=== PATIENT | female | born 1955 | race Caucasian/White ===

== ENCOUNTER 2018-10-14 19:57 | Emergency (ER) | payer BC ==
[2018-10-14 20:43] VITALS: BP 134/70
--- NOTE | 2018-10-14 21:00 | EDM.PDOC ---
ED HPI GENERAL MEDICAL PROBLEM - General Chief Complaint: Head Injury Stated Complaint: FELL AND HIT HEAD, R ANKLE AND L KNEE Time Seen by Provider: 10/14/18 20:37 Source of Information: Reports: Patient History Limitations: Reports: No Limitations - History of Present Illness INITIAL COMMENTS - FREE TEXT/NARRATIVE: HISTORY AND PHYSICAL: History of present illness: Patient is a 63-year-old female who presents to the emergency room with complaints of right foot/ankle pain and left knee pain post fall. She [place] she missed a step and her right ankle rolled. She attempted to break her fall by placing her left knee outward and both outstretched hands. She did hit the back of her head but did not lose consciousness. She had difficulty bearing weight on the right foot and wanted to come and be evaluated. She denies any blood thinners or aspirin use. Review of systems: As per history of present illness and below otherwise all systems reviewed and negative. Past medical history: As per history of present illness and as reviewed below otherwise noncontributory. Surgical history: As per history of present illness and as reviewed below otherwise noncontributory. Social history: See social history for further information Family history: As per history of present illness and as reviewed below otherwise noncontributory. Physical exam: General: Well-developed and well-nourished 63-year-old female. Alert and oriented. Nontoxic appearing and in no acute distress. HEENT: Small localized area to the posterior scalp which is tender, goose egg noted with mild erythema. Otherwise head/scalp is normocephalic, pupils equal and reactive bilaterally (normal variance of left pupil), negative for conjunctival pallor or scleral icterus, mucous membranes moist, TMs normal bilaterally, throat clear, neck supple, nontender, trachea midline. No drooling or trismus noted. No meningeal signs. No hot potato voice noted. Lungs: Clear to auscultation, breath sounds equal bilaterally, chest nontender. Heart: S1S2, regular rate and rhythm without overt murmur Abdomen: Soft, nondistended, nontender. Negative for masses or hepatosplenomegaly. Negative for costovertebral tenderness. Pelvis: Stable nontender. Genitourinary: Deferred. Rectal: Deferred. Skin: Intact, warm, dry. No lesions or rashes noted. Extremities: Moves all extremities per self without any difficulty or deficits. Neurovascular unremarkable. C-spine/Back: No pinpoint vertebral tenderness upon palpation. No crepitus, step -offs or obvious deformities. Patient was ambulatory into the emergency room and his, tingling or satellite paresthesia. Denies any urinary or fecal incontinence. Neuro: Awake, alert, oriented. Cranial nerves II through XII unremarkable. Cerebellum unremarkable. Motor and sensory unremarkable throughout. Exam nonfocal. Notes: We did discuss performing a head CT, she declines. She denies any loss of consciousness and states she is asymptomatic. She states that she did previously have a subdural hematoma which resulted in a ptosis of the left eye. She is aware of risks of not having this test performed. Continues to decline. She is hesitant about receiving x-ray of the ankle and knee, although these areas are tender with palpation and the reason she is being evaluated today. She ultimately is agreeable to having the imaging done of these. She refuses any pain medication at this time. Stating that she only takes Tylenol or "natural muscle relaxers". Patient did come in using her own crutches from previous surgeries. X-rays were negative. Provided with a CAM walker boot. Supportive care measures were reviewed and discussed. Voices understanding and is agreeable to plan of care. Denies any further questions or concerns at this time. Diagnostics: Right ankle/foot x-ray, left knee injury Therapeutics: CAM walker boot Prescription: Declined Impression: Head injury Left knee injury Right foot injury Plan: 1. Rest, ice, elevate the painful extremities as able. Use the walking boot and crutches as needed for comfort. 2. Tylenol and/or ibuprofen as needed for pain management. 3. Please follow-up with the orthopedic provider as we discussed. Return to the ED as needed and as discussed. Definitive disposition and diagnosis as appropriate pending reevaluation and review of above. head;left knee;right ankle Pain Score (Numeric/FACES): 9 - Related Data Allergies Allergy/AdvReac Type Severity Reaction Status Date / Time codeine Allergy Mild Blurred Verified 10/14/18 20:43 Vision diphenhydramine HCl Allergy Mild Tachycardia Verified 10/14/18 20:43 [From Benadryl] latex Allergy Mild Hives Verified 10/14/18 20:43 meperidine HCl [From Demerol] Allergy Mild Hives Verified 10/14/18 20:43 Penicillins Allergy Mild Hives Verified 10/14/18 20:43 promethazine HCl Allergy Mild Hives Verified 10/14/18 20:43 [From Phenergan] rofecoxib [From Vioxx] Allergy Mild Hives Verified 10/14/18 20:43 Sulfa (Sulfonamide Allergy Mild Hives Verified 10/14/18 20:43 Antibiotics) Home Meds: Home Meds Levalbuterol Tartrate [Xopenex Hfa] 1 puff INH ASDIRECTED PRN 10/14/18 [History] Past Medical History HEENT History: Reports: Other (See Below) Other 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 Respiratory History: Reports: Asthma Gastrointestinal History: Reports: Hiatal Hernia 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: high risk , early menopause, primary infertility Musculoskeletal History: Reports: Fracture Other Musculoskeletal History: knee dislocations, Neurological History: Reports: Migraines, Vertigo, Other (See Below) Other Neuro History: subdural hematoma Psychiatric History: Reports: Anxiety Endocrine/Metabolic History: Reports: Other (See Below) Other Endocrine/Metabolic History: states primary adrenal insuffiency Hematologic History: Reports: Blood Transfusion(s) - Past Surgical History Female Surgical History: Reports: Section Musculoskeletal Surgical History: Reports: Ganglion Cyst, Hip Replacement, Knee Replacement Social & Family History - Family History Family Medical History: Noncontributory Cardiac: Reports: [place] Respiratory: Reports: Asthma - Tobacco Use Smoking Status *Q: Never Smoker - Caffeine Use Caffeine Use: Reports: Coffee - Recreational Drug Use Recreational Drug Use: No - Living Situation & Occupation Living situation: Reports: ED ROS GENERAL - Review of Systems Review Of Systems: ROS reveals no pertinent complaints other than HPI. ED EXAM, HEAD INJURY - Physical Exam Exam: See Below (See dictation) Course - Vital Signs Last Recorded V/S: Last Vital Signs Temp 98.7 F 10/14/18 20:30 Pulse 80 10/14/18 20:30 Resp 18 10/14/18 20:30 BP 134/70 10/14/18 20:30 Pulse Ox 96 10/14/18 20:30 - Orders/Labs/Meds Orders: Active Orders 24 hr Category Date Time Status DME for Discharge [COMM] Stat Oth 10/14/18 21:01 Ordered Departure - Departure Time of Disposition: 22:30 Disposition: Home, Self-Care 01 Clinical Impression: Head injury Qualifiers: Encounter type: initial encounter Qualified Code(s): S09.90XA - Unspecified injury of head, initial encounter Left knee injury Qualifiers: Encounter type: initial encounter Qualified Code(s): S89.92XA - Unspecified injury of left lower leg, initial encounter Right ankle injury Qualifiers: Encounter type: initial encounter Qualified Code(s): S99.911A - Unspecified injury of right ankle, initial encounter - Discharge Information Instructions: RICE for Routine Care of Injuries, [id number], Head Injury, Adult, [id number] Referrals: PCP,None [Primary Care Provider] - Forms: ED Department Discharge Additional Instructions: The following information is given to patients seen in the emergency department who are being discharged to home. This information is to outline your options for follow-up care. We provide all patients seen in our emergency department with a follow-up referral. The need for follow-up, as well as the timing and circumstances, are variable depending upon the specifics of your emergency department visit. If you don't have a primary care physician on staff, we will provide you with a referral. We always advise you to contact your personal physician following an emergency department visit to inform them of the circumstance of the visit and for follow-up with them and/or the need for any referrals to a consulting specialist. The emergency department will also refer you to a specialist when appropriate. This referral assures that you have the opportunity for follow-up care with a specialist. All of these measure are taken in an effort to provide you with optimal care, which includes your follow-up. Under all circumstances we always encourage you to contact your private physician who remains a resource for coordinating your care. When calling for follow-up care, please make the office aware that this follow-up is from your recent emergency room visit. If for any reason you are refused follow-up, please contact the [facility] Emergency Department at and asked to speak to the emergency department charge nurse. [facility] [address] [place] [id number] [facility] [address] [place] [address] [facility] - Orth[facility] Clinic Professional Building [address] [facility], [address] [place] [address] 1. Rest, ice, elevate the painful extremities as able. Use the walking boot and crutches as needed for comfort. 2. Tylenol and/or ibuprofen as needed for pain management. 3. Please follow-up with the orthopedic provider as we discussed. Return to the ED as needed and as discussed. - My Orders Last 24 Hours: My Active Orders 10/14/18 21:01 DME for Discharge [COMM] Stat - Assessment/Plan Last 24 Hours: My Active Orders 10/14/18 21:01 DME for Discharge [COMM] Stat
--- NOTE | 2018-10-14 22:11 | CR ---
Indication: Pain Technique: Three views right ankle Comparison: None Findings: Bones: Alignment is normal. No fractures or bone lesions. Joint spaces: Unremarkable. Soft tissues: Unremarkable. Impression: Negative. Dictated by Jolly Goldberg MD @ Oct 14 2018 10:10PM Signed by Dr. Jolly Goldberg @ Oct 14 2018 10:10PM
--- NOTE | 2018-10-14 22:11 | CR ---
Indication: Pain Technique: Two views right foot Comparison: None Findings: Bones: Alignment is normal. No fractures or bone lesions. Small inferior and posterior calcaneal enthesophytes. Joint spaces: Unremarkable. Soft tissues: Unremarkable. Impression: No acute osseous abnormality. Dictated by Jolly Goldberg MD @ Oct 14 2018 10:08PM Signed by Dr. Jolly Goldberg @ Oct 14 2018 10:08PM
--- NOTE | 2018-10-14 22:13 | CR ---
Indication: Pain Technique: Three views left knee Comparison: None Findings: Bones: alignment is normal. No fractures or bone lesions. Joint spaces: Status post left knee arthroplasty. No hardware complication identified. Soft tissues: Unremarkable. Impression: No acute abnormality. Status post left knee arthroplasty. Dictated by Jolly Goldberg MD @ Oct 14 2018 10:11PM Signed by Dr. Jolly Goldberg @ Oct 14 2018 10:11PM
== END 2018-10-14 23:15 | disposition home or self-care (01) ==
LOC: MW.ED 19:57
DX: S09.90XA Unspecified injury of head, initial encounter (principal); S89.92XA Unspecified injury of left lower leg, initial encounter; S99.911A Unspecified injury of right ankle, initial encounter; Z88.0 Allergy status to penicillin; Z88.2 Allergy status to sulfonamides; Z91.040 Latex allergy status; Z88.5 Allergy status to narcotic agent; Z88.8 Allergy status to other drugs, medicaments and biological substances; W10.9XXA Fall (on) (from) unspecified stairs and steps, initial encounter
CPT/HCPCS: 73562-26-LT; 73562-LT; 73610-26-RT; 73610-RT; 73620-26-RT; 73620-RT; 99283-25

== ENCOUNTER 2019-09-30 13:28 | Emergency (ER) | payer BC ==
[2019-09-30 14:01] VITALS: BP 133/77; PULSE 92
--- NOTE | 2019-09-30 15:38 | EDM.PDOC ---
ED HPI GENERAL MEDICAL PROBLEM - General Chief Complaint: ENT Problem Stated Complaint: OBJECT IN THROAT Time Seen by Provider: 09/30/19 15:11 Source of Information: Reports: Patient History Limitations: Reports: No Limitations - History of Present Illness INITIAL COMMENTS - FREE TEXT/NARRATIVE: HISTORY AND PHYSICAL: History of present illness: Patient is a 64-year-old female who presents to the ED today with concern of "scratching her throat ". Patient states she was eating a piece of celery and felt like for second to got stuck but states that it did go down. Patient states since then she has had pain with swallowing. Patient states she has been able to eat both solids and liquids since this incident but does have pain with doing so. Patient states she does not think anything is stuck but felt like her throat got scratched. Patient denies any difficulties breathing or any other symptoms or concerns. Patient denies fever, chills, chest pain, shortness of breath, or cough. Denies headache, neck stiff ness, change in vision, syncope, or near syncope. Denies nausea, vomiting, abdominal pain, diarrhea, constipation, or dysuria. Has not noted any blood in urine or stool. Patient has been eating and drinking appropriately. Review of systems: As per history of present illness and below otherwise all systems reviewed and negative. Past medical history: As per history of present illness and as reviewed below otherwise noncontributory. Surgical history: As per history of present illness and as reviewed below otherwise noncontributory. Social history: See social history for further information Family history: As per history of present illness and as reviewed below otherwise noncontributory. Physical exam: General: Patient is alert, oriented, and in no acute distress. Patient sitting comfortably on exam table. HEENT: Atraumatic, normocephalic, pupils equal and reactive bilaterally, negative for conjunctival pallor or scleral icterus, mucous membranes moist, TMs normal bilaterally, throat clear, neck supple, nontender, trachea midline. No drooling or trismus noted. No meningeal signs. No hot potato voice noted. Lungs: Clear to auscultation, breath sounds equal bilaterally, chest nontender. Heart: S1S2, regular rate and rhythm without overt murmur Abdomen: Soft, nondistended, nontender. Negative for masses or hepatosplenomegaly. Negative for costovertebral tenderness. Pelvis: Stable nontender. Genitourinary: Deferred. Rectal: Deferred. Skin: Intact, warm, dry. No lesions or rashes noted. Extremities: Atraumatic, negative for cords or calf pain. Neurovascular unremarkable. Neuro: Awake, alert, oriented. Cranial nerves II through XII unremarkable. Cerebellum unremarkable. Motor and sensory unremarkable throughout. Exam nonfocal. Notes: Patient declines all diagnostics and therapeutics today in the ED. Had thorough discussion with patient about risk versus benefits of this and expresses understanding. Discussed importance for follow-up with a primary care provider. Voices understanding and is agreeable to plan of care. Denies any further questions or concerns at this time. Diagnostics: Declined Therapeutics: Declined Prescription: None Impression: Dysphagia Plan: 1. You can alternate ibuprofen and Tylenol as directed for pain and discomfort. 2. Follow-up with a primary care provider as discussed. Return to the ED as needed and as discussed. Definitive disposition and diagnosis as appropriate pending reevaluation and review of above. - Related Data Allergies Allergy/AdvReac Type Severity Reaction Status Date / Time codeine Allergy Mild Blurred Verified 09/30/19 14:01 Vision diphenhydramine HCl Allergy Mild Tachycardia Verified 09/30/19 14:01 [From Benadryl] latex Allergy Mild Hives Verified 09/30/19 14:01 meperidine HCl [From Demerol] Allergy Mild Hives Verified 09/30/19 14:01 Penicillins Allergy Mild Hives Verified 09/30/19 14:01 promethazine HCl Allergy Mild Hives Verified 09/30/19 14:01 [From Phenergan] rofecoxib [From Vioxx] Allergy Mild Hives Verified 09/30/19 14:01 Sulfa (Sulfonamide Allergy Mild Hives Verified 09/30/19 14:01 Antibiotics) Home Meds: Home Meds Levalbuterol Tartrate [Xopenex Hfa] 1 puff INH ASDIRECTED PRN 10/14/18 [History] Past Medical History HEENT History: Reports: Other (See Below) Other 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 Respiratory History: Reports: Asthma Gastrointestinal History: Reports: Hiatal Hernia 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: high risk , early menopause, primary infertility Musculoskeletal History: Reports: Fracture Other Musculoskeletal History: knee dislocations, Neurological History: Reports: Migraines, Vertigo, Other (See Below) Other Neuro History: subdural hematoma Psychiatric History: Reports: Anxiety Endocrine/Metabolic History: Reports: Other (See Below) Other Endocrine/Metabolic History: states primary adrenal insuffiency Hematologic History: Reports: Blood Transfusion(s) - Infectious Disease History Infectious Disease History: Reports: Chicken Pox, Measles, Mumps - Past Surgical History Female Surgical History: Reports: Section Musculoskeletal Surgical History: Reports: Ganglion Cyst, Hip Replacement, Knee Replacement Dermatological Surgical History: Reports: Other (See Below) Social & Family History - Family History Family Medical History: Noncontributory Cardiac: Reports: [place] Respiratory: Reports: Asthma - Tobacco Use Smoking Status *Q: Never Smoker - Caffeine Use Caffeine Use: Reports: Coffee - Recreational Drug Use Recreational Drug Use: No - Living Situation & Occupation Living situation: Reports: ED ROS GENERAL - Review of Systems Review Of Systems: Comprehensive ROS is negative, except as noted in HPI. ED EXAM, GENERAL - Physical Exam Exam: See Below (see dictation) Course - Vital Signs Last Recorded V/S: Last Vital Signs Temp 97.9 F 09/30/19 13:56 Pulse 92 09/30/19 13:56 Resp 18 09/30/19 13:56 BP 133/77 09/30/19 13:56 Pulse Ox 97 09/30/19 13:56 Departure - Departure Time of Disposition: 15:37 Disposition: Home, Self-Care 01 Clinical Impression: Dysphagia Qualifiers: Dysphagia type: unspecified Qualified Code(s): R13.10 - Dysphagia, unspecified - Discharge Information Referrals: John Schneider MD [Primary Care Provider] - Forms: ED Department Discharge Additional Instructions: The following information is given to patients seen in the emergency department who are being discharged to home. This information is to outline your options for follow-up care. We provide all patients seen in our emergency department with a follow-up referral. The need for follow-up, as well as the timing and circumstances, are variable depending upon the specifics of your emergency department visit. If you don't have a primary care physician on staff, we will provide you with a referral. We always advise you to contact your personal physician following an emergency department visit to inform them of the circumstance of the visit and for follow-up with them and/or the need for any referrals to a consulting specialist. The emergency department will also refer you to a specialist when appropriate. This referral assures that you have the opportunity for follow-up care with a specialist. All of these measure are taken in an effort to provide you with optimal care, which includes your follow-up. Under all circumstances we always encourage you to contact your private physician who remains a resource for coordinating your care. When calling for follow-up care, please make the office aware that this follow-up is from your recent emergency room visit. If for any reason you are refused follow-up, please contact the [facility] Emergency Department at and asked to speak to the emergency department charge nurse. [facility] [address] [place] [address] [id number] [address] [address] 1. You can alternate ibuprofen and Tylenol as directed for pain and discomfort. 2. Follow-up with a primary care provider as discussed. Return to the ED as needed and as discussed. Sepsis Event Note - Evaluation Sepsis Screening Result: No Definite Risk - Focused Exam Vital Signs: Vital Signs Temp Pulse Resp BP Pulse Ox 09/30/19 13:56 97.9 F 92 18 133/77 97 Date Exam was Performed: 09/30/19 Time Exam was Performed: 15:38
== END 2019-09-30 15:50 | disposition home or self-care (01) ==
LOC: MW.ED 13:28
DX: R13.10 Dysphagia, unspecified (principal); Z88.5 Allergy status to narcotic agent; Z88.8 Allergy status to other drugs, medicaments and biological substances; Z91.040 Latex allergy status; Z88.2 Allergy status to sulfonamides; Z88.0 Allergy status to penicillin; J45.909 Unspecified asthma, uncomplicated
CPT/HCPCS: 99283

== ENCOUNTER 2021-06-05 12:14 | Emergency (ER) | payer SELFPAY ==
--- NOTE | 2021-06-05 12:33 | EDM.PDOC ---
ED HPI GENERAL MEDICAL PROBLEM - General Chief Complaint: Chest Pain Stated Complaint: CHEST PAINS LFT ARM HURTHURTING AND HAND TINGLING Time Seen by Provider: 06/05/21 12:22 Source of Information: Reports: Patient History Limitations: Reports: No Limitations - History of Present Illness INITIAL COMMENTS - FREE TEXT/NARRATIVE: Patient is a 65-year-old female who reports some adrenal issues presents today for left arm tingling and possible chest pain. Symptoms started earlier today and she took some aspirin. She states this feels like her normal adrenal issues but want to make sure she was not having any cardiac issues. Denies any shortness of breath cough fever chills. Nothing makes it pain or tingling or arm worse or better. She has no other complaints. chest Pain Score (Numeric/FACES): 4 - Related Data Allergies Allergy/AdvReac Type Severity Reaction Status Date / Time codeine Allergy Mild Blurred Verified 06/05/21 12:28 Vision diphenhydramine HCl Allergy Mild Tachycardia Verified 06/05/21 12:28 [From Benadryl] latex Allergy Mild Hives Verified 06/05/21 12:28 meperidine HCl [From Demerol] Allergy Mild Hives Verified 06/05/21 12:28 Penicillins Allergy Mild Hives Verified 06/05/21 12:28 promethazine HCl Allergy Mild Hives Verified 06/05/21 12:28 [From Phenergan] rofecoxib [From Vioxx] Allergy Mild Hives Verified 06/05/21 12:28 Sulfa (Sulfonamide Allergy Mild Hives Verified 06/05/21 12:28 Antibiotics) Home Meds: Home Meds Levalbuterol Tartrate [Xopenex Hfa] 1 puff INH ASDIRECTED PRN 10/14/18 [History] Mometasone Furoate [Asmanex 220 MCG] 14 puff .XX ASDIRECTED 06/05/21 [History] Prasterone (DHEA)/Calcium Carb [DHEA] 4 dose PO ASDIRECTED 06/05/21 [History] Pregnenolone, Micronized [Pregnenolone Micronized] 10 dose PO BID 06/05/21 [History] Past Medical History HEENT History: Reports: Other (See Below) Other 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 Respiratory History: Reports: Asthma Gastrointestinal History: Reports: Hiatal Hernia 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 ASSISTANT History: Reports: Other SHIPPING ASSISTANT History: high risk , early menopause, primary infertility Musculoskeletal History: Reports: Fracture Other Musculoskeletal History: knee dislocations, Neurological History: Reports: Migraines, Vertigo, Other (See Below) Other Neuro History: subdural hematoma Psychiatric History: Reports: Anxiety Endocrine/Metabolic History: Reports: Other (See Below) Other Endocrine/Metabolic History: states primary adrenal insuffiency Hematologic History: Reports: Blood Transfusion(s) - Infectious Disease History Infectious Disease History: Reports: Chicken Pox, Measles, Mumps - Past Surgical History Female Surgical History: Reports: Section Musculoskeletal Surgical History: Reports: Ganglion Cyst, Hip Replacement, Knee Replacement Dermatological Surgical History: Reports: Other (See Below) Social & Family History - Family History Family Medical History: No Pertinent Family History Cardiac: Reports: [place] Respiratory: Reports: Asthma - Caffeine Use Caffeine Use: Reports: Coffee - Living Situation & Occupation Living situation: Reports: ED ROS GENERAL - Review of Systems Review Of Systems: See Below Constitutional: Reports: No Symptoms HEENT: Reports: No Symptoms Respiratory: Reports: No Symptoms Cardiovascular: Reports: Chest Pain Endocrine: Reports: No Symptoms GI/Abdominal: Reports: No Symptoms : Reports: No Symptoms Musculoskeletal: Reports: No Symptoms Skin: Reports: No Symptoms Neurological: Reports: No Symptoms Psychiatric: Reports: No Symptoms Hematologic/Lymphatic: Reports: No Symptoms Immunologic: Reports: No Symptoms ED EXAM, GENERAL - Physical Exam Exam: See Below Exam Limited By: No Limitations General Appearance: Alert, WD/WN, No Apparent Distress Ears: Normal External Exam Head: Atraumatic Respiratory/Chest: No Respiratory Distress, Lungs Clear, Normal Breath Sounds Cardiovascular: Normal Peripheral Pulses, Regular Rate, Rhythm GI/Abdominal: Normal Bowel Sounds, Soft, Non-Tender Extremities: Normal Inspection, Normal Range of Motion Neurological: Alert, Oriented, Normal Cognition, Normal Gait #1 Interpretation EKG Date: 06/05/21 Time: 12:28 Rhythm: NSR Rate (Beats/Min): 70 QRS: Normal QT: Normal Course - Vital Signs Last Recorded V/S: Last Vital Signs Temp 208.8 F H 06/05/21 14:00 Pulse 80 06/05/21 16:18 Resp 18 06/05/21 16:18 BP 123/67 06/05/21 16:18 Pulse Ox 95 06/05/21 16:18 - Orders/Labs/Meds Orders: Active Orders 24 hr Category Date Time Status EKG 12 Lead [EKG Documentation Completion] [RC] STAT Care 06/05/21 12:28 Ordered UA W/MERLY RFLX IF INDICATED [URIN] Stat Lab 06/05/21 12:28 Ordered Labs: Laboratory Tests 06/05/21 06/05/21 06/05/21 Range/Units 12:26 12:26 15:39 WBC 8.58 (4.0-11.0) K/uL RBC 4.74 (4.30-5.90) M/uL Hgb 14.6 (12.0-16.0) g/dL Hct 44.2 (36.0-46.0) % MCV 93.2 (80.0-98.0) fL MCH 30.8 (27.0-32.0) pg MCHC 33.0 (31.0-37.0) g/dL RDW Std Deviation 48.2 (28.0-62.0) fl RDW Coeff of Davie 14 (11.0-15.0) % Plt Count 328 (150-400) K/uL MPV 10.00 (7.40-12.00) fL Neut % (Auto) 66.7 (48.0-80.0) % Lymph % (Auto) 20.5 (16.0-40.0) % Clinch % (Auto) 7.2 (0.0-15.0) % Eos % (Auto) 4.8 (0.0-7.0) % Baso % (Auto) 0.8 (0.0-1.5) % Neut # (Auto) 5.7 (1.4-5.7) K/uL Lymph # (Auto) 1.8 (0.6-2.4) K/uL Clinch # (Auto) 0.6 (0.0-0.8) K/uL Eos # (Auto) 0.4 (0.0-0.7) K/uL Baso # (Auto) 0.1 (0.0-0.1) K/uL Nucleated RBC % 0.0 /100WBC Nucleated RBCs # 0 K/uL Sodium 139 (136-145) mmol/L Potassium 3.8 (3.5-5.1) mmol/L Chloride 99 (98-107) mmol/L Carbon Dioxide 31.9 (21.0-32.0) mmol/L BUN 15 (7.0-18.0) mg/dL Creatinine 0.9 (0.6-1.0) mg/dL Est Cr Clr Drug Dosing 59.12 mL/min Estimated GFR (MDRD) > 60.0 ml/min Glucose 104 (74-106) mg/dL Calcium 9.2 (8.5-10.1) mg/dL Phosphorus 4.3 (2.6-4.7) mg/dL Magnesium 2.5 H (1.8-2.4) mg/dL Total Bilirubin 0.4 (0.2-1.0) mg/dL AST 28 (15-37) IU/L ALT 42 (14-63) IU/L Alkaline Phosphatase 143 H (46-116) U/L Creatine Kinase 98 87 (26-308) U/L Troponin I < 0.050 < 0.050 (0.000-0.056) ng/mL Total Protein 8.8 H (6.4-8.2) g/dL Albumin 4.4 (3.4-5.0) g/dL Globulin 4.4 H (2.6-4.0) g/dL Albumin/Globulin Ratio 1.0 (0.9-1.6) Lipase 200 (73-393) U/L TSH, Ultra Sensitive 2.54 (0.36-3.74) uIU/mL Meds: Medications Discontinued Medications Generic Name Dose Route Start Last Admin Trade Name Freq PRN Reason Stop Dose Admin Morphine Sulfate 2 mg 06/05/21 12:56 06/05/21 13:27 Morphine 2 Mg/Ml Syringe IVPUSH 06/05/21 12:57 Not Given ONETIME ONE - Re-Assessments/Exams Free Text/Narrative Re-Assessment/Exam: 06/05/21 12:49 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 Patient this time is refusing understands the risk of not having a complete work-up. 06/05/21 16:27 Patient continued to refuse reports of her work-up we did get 2 sets troponins are negative patient is chest pain-free will be discharged home she has a low heart score. Departure - Departure Time of Disposition: 16:28 Disposition: Home, Self-Care 01 Condition: Good Clinical Impression: Chest pain - Discharge Information *PRESCRIPTION DRUG MONITORING PROGRAM REVIEWED*: Not Applicable *COPY OF PRESCRIPTION DRUG MONITORING REPORT IN PATIENT LISA: Not Applicable Instructions: Nonspecific Chest Pain, Adult, [id number] Referrals: PCP,None [Primary Care Provider] - Forms: ED Department Discharge Additional Instructions: . You were seen today for what you described as possible chest pain and left arm pain. We did a cardiac work-up did not show any acute cause of this chest pain. If you continue to have pain recommend follow-up with cardiology or return to ED immediately. The following information is given to patients seen in the emergency department who are being discharged to home. This information is to outline your options for follow-up care. We provide all patients seen in our emergency department with a follow-up referral. The need for follow-up, as well as the timing and circumstances, are variable depending upon the specifics of your emergency department visit. If you don't have a primary care physician on staff, we will provide you with a referral. We always advise you to contact your personal physician following an emergency department visit to inform them of the circumstance of the visit and for follow-up with them and/or the need for any referrals to a consulting specialist. The emergency department will also refer you to a specialist when appropriate. This referral assures that you have the opportunity for follow-up care with a specialist. All of these measure are taken in an effort to provide you with optimal care, which includes your follow-up. Under all circumstances we always encourage you to contact your private physician who remains a resource for coordinating your care. When calling for follow-up care, please make the office aware that this follow-up is from your recent emergency room visit. If for any reason you are refused follow-up, please contact the [facility] Emergency Department at and asked to speak to the emergency department charge nurse. Please follow up with your primary care physician. If you do not have a primary care physician, see below: [facility] [address] [place] [id number] [address] Sepsis Event Note (ED) - Evaluation Sepsis Screening Result: No Definite Risk - Focused Exam Vital Signs: Vital Signs Temp Pulse Resp BP Pulse Ox 06/05/21 16:18 80 18 123/67 95 06/05/21 14:11 91 18 117/72 99 06/05/21 14:00 208.8 F H 78 18 116/72 96 06/05/21 13:00 85 18 124/67 93 L 06/05/21 12:24 97.5 F 88 18 126/78 97 - My Orders Last 24 Hours: My Active Orders 06/05/21 12:28 EKG 12 Lead [EKG Documentation Completion] [RC] STAT UA W/MERLY RFLX IF INDICATED [URIN] Stat - Assessment/Plan Last 24 Hours: My Active Orders 06/05/21 12:28 EKG 12 Lead [EKG Documentation Completion] [RC] STAT UA W/MERLY RFLX IF INDICATED [URIN] Stat Plan: Patient is a 65-year-old female presents today for chest pain arm pain. Patient has a heart score of 2 due to age and risk factors. Will obtain x-ray labs troponins x2 and reassess patient.
[2021-06-05] MEDS ORDERED: Morphine 2 MG/ML SYRINGE IVPUSH ONE (12:56)
[2021-06-05 13:09] LABS: BLOOD UREA NITROGEN,BUN 15 mg/dL (7.0-18.0); CARBON DIOXIDE,CO2 31.9 mmol/L (21.0-32.0); CHLORIDE,CL 99 mmol/L (98-107); GLUCOSE RANDOM 104 mg/dL (74-106); LIPASE 200 U/L (73-393); POTASSIUM,K 3.8 mmol/L (3.5-5.1); SODIUM,NA 139 mmol/L (136-145)
[2021-06-05 16:21] VITALS: BP 123/67; PULSE 80
== END 2021-06-05 16:32 | disposition home or self-care (01) ==
LOC: MW.ED 12:14
DX: R07.9 Chest pain, unspecified (principal); Z88.0 Allergy status to penicillin; Z88.5 Allergy status to narcotic agent; Z91.040 Latex allergy status; Z88.8 Allergy status to other drugs, medicaments and biological substances; Z88.2 Allergy status to sulfonamides
CPT/HCPCS: 36415; 80053; 82550; 83690; 83735; 84100; 84443; 84484; 85025; 93005; 99285-25

== ENCOUNTER 2024-06-23 15:32 | Emergency (ER) | payer MEDICARE, OTHER ==
[2024-06-23 16:45] VITALS: BP 116/64; PULSE 75
== END 2024-06-23 16:44 | disposition home or self-care (01) ==
LOC: MW.ED 15:32
DX: S00.93XA Contusion of unspecified part of head, initial encounter (principal); J45.909 Unspecified asthma, uncomplicated; Z96.649 Presence of unspecified artificial hip joint; Z96.659 Presence of unspecified artificial knee joint; Z88.0 Allergy status to penicillin; Z88.2 Allergy status to sulfonamides; Z88.5 Allergy status to narcotic agent; Z88.8 Allergy status to other drugs, medicaments and biological substances; Z91.040 Latex allergy status; Z79.899 Other long term (current) drug therapy; W22.8XXA Striking against or struck by other objects, initial encounter
CPT/HCPCS: 70450; 70450-26; 99283

== ENCOUNTER 2025-04-30 19:27 | Emergency (ER) | payer MEDICARE, OTHER ==
[2025-04-30] MEDS ORDERED: Sodium Chloride 0.9% 10 ML Syringe FLUSH PRN (19:40)
[2025-04-30] MEDS ORDERED: Sodium Chloride 0.9% 2.5 ML Syringe FLUSH PRN (19:40)
[2025-04-30 20:02] LABS: BASOPHILS ABSOLUTE AUTO 0.13 K/uL (0.00-0.20); BASOPHILS PERCENT AUTO 1.3 % (0.0-1.0); EOSINOPHILS ABSOLUTE AUTO 0.79 K/uL (0.00-0.45); EOSINOPHILS PERCENT AUTO 7.8 % (0.0-6.0); IMMATURE GRAN ABSOLUTE AUTO 0.07 K/uL (0.00-0.05); IMMATURE GRAN PERCENT AUTO 0.7 % (0.0-0.4); LYMPHOCYTES ABSOLUTE AUTO 1.87 K/uL (1.00-4.80); LYMPHOCYTES PERCENT AUTO 18.4 % (24.0-44.0); MEAN PLATELET VOLUME 9.4 fL (9.4-12.3); MONOCYTES ABSOLUTE AUTO 0.69 K/uL (0.00-0.80); MONOCYTES PERCENT AUTO 6.8 % (0.0-8.0); NEUTROPHILS ABSOLUTE AUTO 6.63 K/uL (1.80-7.70); NEUTROPHILS PERCENT AUTO 65.0 % (41.0-71.0); NRBC ABSOLUTE 0.00 K/uL (0.00-0.02); NRBC PERCENT 0.0 /100WBC (0.0-0.2); PLATELET COUNT,PLT 334 K/uL (150-400); RED BLOOD CELL COUNT 4.39 M/uL (4.10-5.30); WHITE BLOOD CELL COUNT,WBC 10.18 K/uL (3.9-11.3)
[2025-04-30 20:21] LABS: INR < 0.93 (0.86-1.11)
[2025-04-30 20:31] LABS: A/G RATIO 1.1 (0.9-1.6); ALANINE AMINOTRANSFERASE,ALT 20.0 IU/L (14-63); ASPARTATE AMNIOTRANSFERASE,AST 16.0 IU/L (15-37); BILIRUBIN TOTAL 0.2 mg/dL (0.2-1.0); BLOOD UREA NITROGEN,BUN 17.0 mg/dL (7.0-18.0); CARBON DIOXIDE,CO2 27.0 mmol/L (21.0-32.0); CHLORIDE,CL 106.0 mmol/L (98-107); CREATININE 0.8 mg/dL (0.6-1.0); EST CRCL DRUG DOSING (CG) 63.01 mL/min; GLUCOSE RANDOM 112.0 mg/dL (74-106); POTASSIUM,K 4.1 mmol/L (3.5-5.1); PRO B-TYPE NATRIUR PEPT,BNPPRO 167.0 pg/mL (0-125); PROTEIN TOTAL,TP 7.7 g/dL (6.4-8.2); SODIUM,NA 145.0 mmol/L (136-145)
[2025-04-30 20:36] LABS: ESTIMATED GFR 80.0 mL/min (>60)
[2025-04-30 21:12] VITALS: BP 124/79
[2025-04-30 21:42] VITALS: PULSE 79
== END 2025-04-30 21:40 | disposition home or self-care (01) ==
LOC: MW.ED 19:27
DX: R00.2 Palpitations (principal); R53.83 Other fatigue; Z88.5 Allergy status to narcotic agent; Z91.040 Latex allergy status; Z88.2 Allergy status to sulfonamides; Z88.8 Allergy status to other drugs, medicaments and biological substances; Z79.899 Other long term (current) drug therapy; Z86.79 Personal history of other diseases of the circulatory system
CPT/HCPCS: 36415; 71045; 71045-26; 80053; 83735; 83880; 84484; 85025; 85610; 93005; 93010; 99284; 99285